=== PATIENT | male | born 2000 | race Caucasian/White ===

== ENCOUNTER → 2021-12-12 | Outpatient (CLI) | payer BC, OTHER ==
--- NOTE | 2021-12-12 11:56 | Diagnostic Imaging Report ---
CLINICAL HISTORY: Mid back pain. COMPARISON: None. TECHNIQUE: 2 views of the thoracic spine. FINDINGS: There is no acute fracture or dislocation of the thoracic spine. Alignment is anatomic. Vertebral body heights are maintained. No focal osseous lesions are seen. The paraspinal soft tissues are unremarkable. Included lungs are clear. IMPRESSION: 1. No acute fracture or dislocation in the thoracic spine. Dictated by: Dictated on workstation # [id number]
--- NOTE | 2021-12-12 11:56 | Diagnostic Imaging Report ---
CLINICAL HISTORY: Neck pain. COMPARISON: None. TECHNIQUE: 3 views of the cervical spine. FINDINGS: There is no acute fracture or dislocation of the cervical spine. Alignment is anatomic. Vertebral body heights are maintained. No focal osseous lesions are seen. The prevertebral soft tissues are unremarkable. Included lungs are clear. IMPRESSION: 1. No acute fracture or dislocation in the cervical spine. Dictated by: Dictated on workstation # [id number]
== END ==
LOC: RAD 11:35
PROVIDERS: ATTEND Nurse Practitioner Family
DX: M54.2 Cervicalgia (principal); M54.6 Pain in thoracic spine
CPT/HCPCS: 72040; 72070